=== PATIENT | female | born 1990 | race Caucasian/White ===

== ENCOUNTER 2017-09-24 19:33 | Emergency (ER) | payer OTHER ==
[~2017-09-24] VITALS: Ht 172.7 cm; Wt 63.6 kg
[2017-09-24 19:39] VITALS: TEMP 97.6
[2017-09-24 20:55] LABS: HIV 1/2 Antibodies Non-Reactive; HIV-1p24 Antigen Non-Reactive
[2017-09-24 21:15] VITALS: BP 116/64; PULSE 61
[2017-09-25 18:12] LABS: HEPATITIS B SURFACE ANTIGEN Negative (()); HEPATITIS C VIRUS ANTIBODY Negative (())
== END 2017-09-24 21:37 | disposition home or self-care (01) ==
LOC: COL.ER 19:33
PROVIDERS: Physician Assistant
DX: O9A.23 Injury, poisoning and certain other consequences of external causes complicating the puerperium (principal); S61.237A Puncture wound without foreign body of left little finger without damage to nail, initial encounter; W46.0XXA Contact with hypodermic needle, initial encounter

== ENCOUNTER 2018-03-15 01:35 | Emergency (ER) | payer OTHER ==
[~2018-03-15] VITALS: Ht 172.7 cm; Wt 65.9 kg
[2018-03-15 01:59] VITALS: BP 124/62; PULSE 98; TEMP 97.2
[2018-03-15 02:44] LABS: HIV 1/2 Antibodies Non-Reactive; HIV-1p24 Antigen Non-Reactive
[2018-03-15 13:52] LABS: HEPATITIS B SURFACE ANTIGEN Negative (Negative); HEPATITIS C VIRUS ANTIBODY Negative (Negative)
== END 2018-03-15 02:08 | disposition home or self-care (01) ==
LOC: COL.ER 01:35
PROVIDERS: Nurse Practitioner
DX: Z77.21 Contact with and (suspected) exposure to potentially hazardous body fluids (principal); Z98.890 Other specified postprocedural states